=== PATIENT | male | born 1950 | race Caucasian/White ===

== ENCOUNTER 2024-05-05 00:30 | Observation (INO) | payer MEDICARE, OTHER ==
[2024-05-06] MEDS ORDERED: Ondansetron ODT 4 MG TAB PO PRN (01:24)
[2024-05-06] MEDS ORDERED: traMADol HCl 50 MG TAB PO PRN (01:24)
[2024-05-06] MEDS ORDERED: Ondansetron PF 4 MG/2 ML Vial IVP PRN (01:24)
[2024-05-06 01:40] VITALS: BMI 38.5
[2024-05-06] MEDS ORDERED: clonazePAM 0.5 MG TAB PO PRN (02:43)
[2024-05-06] MEDS: Doxycycline 100 MG in Sodium Chloride 0.9% 100 ML IVPB SCH (02:56)
[2024-05-06] MEDS: Acetaminophen 325 MG TAB PO PRN (02:56)
[2024-05-06 03:33] LABS: Phosphorus 4.6 mg/dL (2.3-4.7)
[2024-05-06 03:35] LABS: #Basophils 0.03 10x3/uL (0.0-0.2); %Basophils 0.8 % (0.0-1.0); %Eosinophils 4.2 % (0.0-10.0); %Lymphocytes 23.6 % (21.0-51.0); %Monocytes 16.8 % (0.0-10.0); %Neutrophils 54.1 % (42.0-75.0); ALT (SGPT) 17 U/L (8-55); AST (SGOT) 22 U/L (5-34); Albumin 3.2 g/dL (3.4-4.8); Alkaline Phosphatase 58 U/L (40-110); Anion Gap 14 mmol/L (10-20); BUN (Urea Nitrogen) 68 mg/dL (8.4-25.7); Bilirubin, Total 0.5 mg/dL (0.2-1.2); Calc. Creatinine Clearance 28 mL/min (70-130); Calcium 9.7 mg/dL (7.8-10.44); Carbon Dioxide 21 mmol/L (23-31); Chloride 108 mmol/L (98-107); Estimated GFR 17; Glucose 129 mg/dL (83-110); Hematocrit 32.9 % (42.0-52.0); Hemoglobin 10.5 g/dL (14.0-18.0); Magnesium 2.5 mg/dL (1.6-2.6); Mean Corpuscular HGB CONC 31.9 g/dL (32.0-36.0); Mean Corpuscular Hemoglobin 31.5 pg (27.0-31.0); Mean Corpuscular Volume 98.8 fL (78.0-98.0); Mean Platelet Volume 9.9 fL (7.4-10.4); Platelet Count 131 10x3/uL (130-400); Potassium 3.9 mmol/L (3.5-5.1); Protein, Total 7.2 g/dL (5.8-8.1); Red Blood Cell (RBC) Count 3.33 mill/uL (4.70-6.10); Sodium 139 mmol/L (136-145)
[2024-05-06] MEDS ORDERED: Heparin 5,000 UNITS/ML VIAL SC SCH (09:00)
[2024-05-06] MEDS: Gabapentin 300 MG CAP PO SCH (10:36)
[2024-05-06] MEDS: Colestipol 1 GM TAB PO SCH (10:36)
[2024-05-06] MEDS: Cinacalcet HCl 30 MG TAB PO SCH (10:36)
[2024-05-06] MEDS: Cyanocobalamin (Vitamin B-12) 1,000 MCG TAB PO SCH (10:36)
[2024-05-06] MEDS: Lorazepam 0.5 MG TAB PO SCH (10:36)
[2024-05-06] MEDS: Pantoprazole 40 MG DR.TAB PO SCH (10:36)
[2024-05-06] MEDS: Folic Acid 1 MG TAB PO SCH (10:37)
[2024-05-06] MEDS: Enoxaparin 120 MG/0.8 ML SYRINGE SC SCH (10:39)
[2024-05-06] MEDS: Divalproex Sodium 250 MG ER.TAB PO SCH (10:40)
[2024-05-06 11:12] VITALS: TEMP 97.6
[2024-05-06 13:14] VITALS: BP 152/79
[2024-05-06] MEDS ORDERED: FLU (Fluad Triv) TS24-25 (65UP)/MF59C/PF 45 MCG/0.5 ML Syringe IM ONE (15:00)
[2024-05-06] MEDS ORDERED: Divalproex Sodium 500 MG ER.TAB PO SCH (21:00)
[2024-05-07] MEDS ORDERED: Enoxaparin 120 MG/0.8 ML SYRINGE SC SCH (09:00)
== END 2024-05-06 12:45 | disposition left against medical advice (07) ==
LOC: 2NO 05-06 00:55
PROVIDERS: ADMIT Internal Medicine; ATTEND Internal Medicine
DX: G93.41 Metabolic encephalopathy (principal); N18.4 Chronic kidney disease, stage 4 (severe); N17.9 Acute kidney failure, unspecified; N25.81 Secondary hyperparathyroidism of renal origin; E87.20 Acidosis, unspecified; F23 Brief psychotic disorder; F31.9 Bipolar disorder, unspecified; F41.9 Anxiety disorder, unspecified; G62.9 Polyneuropathy, unspecified; K86.89 Other specified diseases of pancreas; M10.9 Gout, unspecified; M54.50 Low back pain, unspecified; Z86.711 Personal history of pulmonary embolism; Z86.718 Personal history of other venous thrombosis and embolism; Z79.899 Other long term (current) drug therapy
CPT/HCPCS: 80053; 83735; 84100; 85025; 96374; 97139; G0378; J1650; 36415